=== PATIENT | female | born 1965 | race African-American/Black ===

== ENCOUNTER → 2016-05-28 | Outpatient (CLI) | payer BC ==
--- NOTE | 2016-05-28 12:08 | KCIC ---
Bilateral digital screening mammograms with CAD: HISTORY Routine screening. COMPARISON Comparison is made to previous studies dated 03/18/2015 and 01/18/2014. FINDINGS Breast density category B. The skin and nipples show no abnormalities. No abnormal lymph nodes are seen in the axilla. The breast parenchyma shows scattered fibroglandular density. There continue to be intramammary lymph nodes in the upper-outer quadrants bilaterally. There also continue to be small circumscribed nodules bilaterally which are unchanged. There are no new dominant masses, suspicious calcifications or architectural distortions. IMPRESSION No evidence of malignancy. Recommend routine annual mammographic screening. This study was interpreted with the benefit of Computerized Aided Detection (CAD). Mammography is not 100% sensitive in detecting breast cancer. Therefore, a self breast exam and a clinical breast exam are very important. A negative mammogram does not negate a clinically suspicious finding and should not result in a delay in biopsying a clinically suspicious abnormality. BI-RADS category 2: Benign. This patient's information has been entered into a reminder system for the patient to be notified with the results of this examination and a target date for her next mammograms. Electronically signed by: Katelin Choe MD (May 28, 2016 12:06:35)
== END | disposition home or self-care (01) ==
LOC: KCIC MAMMO 09:14
PROVIDERS: ATTEND Registered Nurse Emergency
DX: Z12.31 Encounter for screening mammogram for malignant neoplasm of breast (principal)
CPT/HCPCS: 77052; G0202; 77067

== ENCOUNTER → 2017-08-27 | Outpatient (CLI) | payer BC | END | disposition home or self-care (01) | LOC: KCIC MAMMO 10:58 | DX: Z12.31 Encounter for screening mammogram for malignant neoplasm of breast (principal) | CPT/HCPCS: 77067 ==

== ENCOUNTER → 2020-03-29 | Outpatient (CLI) | payer BC ==
--- NOTE | 2020-03-29 12:18 | KCIC ---
Bilateral digital screening mammograms: Reason for examination: Routine screening. Comparison is made to previous studies dated back to 01/18/2014. Interpretation was made with the benefit of CAD. The skin and nipples show no abnormalities. No abnormal axillary lymph nodes are seen. The breast parenchyma shows scattered fibroglandular density. (Breast density: Category B.) There continue to be nodules consistent with intramammary lymph nodes in the upper outer quadrants bilaterally. There also continue to be small circumscribed nodules medially at the 3:00 B and 5:00 A positions of the right breast which are unchanged. There are no new dominant masses, suspicious calcifications or architectural distortions. A few benign calcifications are again seen. Impression: No evidence of malignancy. Recommend routine screening. BI-RADS Category 2: Benign. "Our facility is accredited by the [employer] Mammography [employer]." This patient's information has been entered into a reminder system for the patient to be notified with the results of her examination and a target date for the next mammogram. Electronically signed by: Valerie Choe MD (03/29/2020 12:15 PM) [id number]
== END ==
LOC: KCIC MAMMO 08:21
PROVIDERS: ATTEND Registered Nurse Emergency
DX: Z12.31 Encounter for screening mammogram for malignant neoplasm of breast (principal); N64.89 Other specified disorders of breast
CPT/HCPCS: 77067

== ENCOUNTER → 2021-03-31 | Outpatient (CLI) | payer BC ==
--- NOTE | 2021-04-02 10:53 | RAD ---
BILATERAL DIGITAL SCREENING 2-D MAMMOGRAM INDICATION: Routine screening. COMPARISON: 03/29/2020, 08/27/2017, 03/18/2015, Interpretation was made using CAD. FINDINGS: Breast Density: There are scattered areas of fibroglandular density. RIGHT BREAST: No suspicious masses, calcifications or areas of architectural distortion are seen. Sta ble circumscribed masses. LEFT BREAST: No suspicious masses, calcifications or areas of architectural distortion are seen. Stab le circumscribed masses. IMPRESSION: 1. No imaging evidence of malignancy. Stable bilateral circumscribed masses consistent with a benign process. ASSESSMENT: BI-RADS 2: Benign. RECOMMENDATION: Routine annual screening mammogram. The facility will notify the patient of the results via mail. Patient information will be entered int o the mammography reminder system with a target recall date for the next mammogram. A reminder letter will be generated by the facility. Electronically signed by: Edward Evangelista MD (04/02/2021 10:50 AM) [id number]
== END ==
LOC: MAMMO 08:19
PROVIDERS: ATTEND Registered Nurse Emergency
DX: Z12.31 Encounter for screening mammogram for malignant neoplasm of breast (principal)
CPT/HCPCS: 77067